=== PATIENT | female | born 1955 | race Caucasian/White ===

== ENCOUNTER 2016-12-15 06:29 | Inpatient (IN) | payer BC, MEDICARE ==
[~2016-12-15] VITALS: Ht 172.7 cm; Wt 123.8 kg
[~2016-12-15 06:29] MED LIST: ASCO-96 PO; ATOR40TA78 PO; CALCIUM + VIT D PO; CEPH-367 PO; CRANBERRY PO; CYAN10005 PO; CYCL-259 PO; FOLI0.8T2 PO; FURO40TA6 PO; GINK60TA4 PO; GLUC-121 PO; HYDR-3241 PO; HYDR2TAB13 PO; INSU100C SQ-INSULIN; INSU100V8 SQ; IRON PO; KRIL1CAP5 PO; Laxative; MAGNESIUM W/ ZINC PO; MELO-190 PO; METH750T87 PO; MILK OF MAG PO; PRAVASTATIN PO; PREG200C PO; ROPI5TAB PO; SELE200T2 PO; SLEEP AID PO; TRAM50TA2 PO; VITAMIN E PO; [UNRECOGNIZED DRUG - OTHER] PO; [UNRECOGNIZED DRUG - OTHER] PO
[2016-12-15] MEDS ORDERED: FENTANYL PF 250 MCG/5ML ONE ×2 (06:36→11:15)
[2016-12-15] MEDS ORDERED: HYDROmorphone 1 MG/ML, 1ML ONE ×2 (06:36→11:15)
[2016-12-15] MEDS ORDERED: KETAMINE 10 MG/ML, 20ML ONE (06:36)
[2016-12-15] MEDS ORDERED: MIDAZOLAM 1 MG/ML, 2ML ONE (06:36)
[2016-12-15] MEDS ORDERED: LACTATED RINGERS 1,000 ML IV SCH (07:53)
[2016-12-15 08:14] VITALS: BP 133/89
[2016-12-15] MEDS ORDERED: THROMBIN 5,000 UNIT VIAL TP ONE (08:39)
[2016-12-15] MEDS ORDERED: LIDOCAINE 0.5%-EPI 1:200K, 50ML ONE (08:39)
[2016-12-15] MEDS ORDERED: VANCOMYCIN 1,000 MG ONE (08:39)
[2016-12-15] MEDS ORDERED: BUPIVACAINE/PF-EPI 0.25% 1:200K ONE (08:39)
[2016-12-15] MEDS ORDERED: VANCOMYCIN 500 MG ONE (08:39)
[2016-12-15] MEDS ORDERED: ONDANSETRON 2MG/ML, 2ML ONE (08:53)
[2016-12-15] MEDS ORDERED: DEXAMETHASONE 4 MG/ML, 5ML ONE (08:53)
[2016-12-15] MEDS ORDERED: CEFAZOLIN 1,000 MG ONE (08:53)
[2016-12-15] MEDS ORDERED: LABETALOL 20 MG/4 ML ONE (08:53)
[2016-12-15] MEDS ORDERED: PROPOFOL 10 MG/ML, 50ML ONE (08:53)
[2016-12-15] MEDS ORDERED: PROPOFOL 10 MG/ML, 20ML ONE (08:53)
[2016-12-15] MEDS ORDERED: PHENYLEPHRINE 10 MG/ML ONE (08:53)
[2016-12-15] MEDS ORDERED: SUCCINYLCHOLINE 20 MG/ML, 10ML ONE (08:53)
[2016-12-15] MEDS ORDERED: METOCLOPRAMIDE 5 MG/ML, 2ML IV PRN (11:00)
[2016-12-15] MEDS ORDERED: OXYcodone 5 MG/5 ML ORAL.SOL UDC PO PRN (11:00)
[2016-12-15] MEDS ORDERED: LABETALOL 5MG/ML, 20ML IV PRN (11:00)
[2016-12-15] MEDS ORDERED: ONDANSETRON 2MG/ML, 2ML IVPush PRN (11:00)
[2016-12-15] MEDS ORDERED: ACETAMINOPHEN 325 MG TABLET PO PRN (11:00)
[2016-12-15] MEDS ORDERED: hydrALAzine 20 MG/ML, 1ML IV PRN (11:00)
[2016-12-15] MEDS ORDERED: PROMETHAZINE 25 MG/ML, 1ML IV PRN (11:00)
[2016-12-15] MEDS ORDERED: ALBUTEROL/IPRATROPIUM 2.5MG/0.5MG, 3 ML NPPB PRN (11:00)
[2016-12-15] MEDS ORDERED: MEPERIDINE/PF 25MG/0.5ML IVPush PRN (11:00)
[2016-12-15] MEDS ORDERED: MIDAZOLAM 1 MG/ML, 2ML IV PRN (11:00)
[2016-12-15] MEDS ORDERED: ACETAMINOPHEN 325 MG TABLET ONE (12:29)
[2016-12-15] MEDS ORDERED: OXYcodone 5 MG/5 ML ORAL.SOL UDC ONE (12:29)
[2016-12-15] MEDS ORDERED: FENTANYL PF 100 MCG/2ML ONE (12:29)
[2016-12-15] MEDS: FENTANYL PF 100 MCG/2ML IV PRN ×2 (12:30→12:35)
[2016-12-15] MEDS ORDERED: HYDROmorphone 2 MG/ML, 1ML ONE (12:43)
[2016-12-15] MEDS: HYDROmorphone 1 MG/ML, 1ML IV PRN ×2 (12:45→13:00)
[2016-12-15] MEDS ORDERED: ALBUTEROL/IPRATROPIUM 2.5MG/0.5MG, 3 ML ONE (13:05)
[2016-12-15] MEDS ORDERED: METHOCARBAMOL 1,000 MG in DEXTROSE 5% 100 ML IV ONE (14:30)
[2016-12-15] MEDS ORDERED: METHOCARBAMOL 1000MG/10 ML IVPB ONE (14:30)
[2016-12-15] MEDS ORDERED: MAGNESIUM HYDROXIDE 8%, 30ML UDC PO PRN (15:00)
[2016-12-15] MEDS ORDERED: BISACODYL 10 MG SUPP PR PRN (15:00)
[2016-12-15] MEDS ORDERED: ONDANSETRON 2MG/ML, 2ML IV PRN (15:00)
[2016-12-15] MEDS ORDERED: HYDROcodone/APAP 5/325 TABLET PO PRN (15:00)
[2016-12-15] MEDS ORDERED: PROMETHAZINE 25 MG/ML, 1ML IM PRN (15:00)
[2016-12-15] MEDS: DIAZEPAM 5 MG TABLET PO PRN (15:22)
[2016-12-15] MEDS ORDERED: INSULIN REGULAR 100 UNITS/ML, 3ML VIAL SQ-INSULIN SCH (16:00)
[2016-12-15] MEDS: METHOCARBAMOL 1,000 MG in DEXTROSE 5% 100 ML IV SCH ×2 (16:56→23:42)
[2016-12-15] MEDS: NS + 20MEQ KCL 1,000 ML IV SCH (17:05)
[2016-12-15] MEDS: CEFAZOLIN PMX 1GM/50ML 50 ML IVPB SCH (17:38)
[2016-12-15] MEDS ORDERED: OMEP20CA14 PO (17:51)
[2016-12-15] MEDS ORDERED: MONT10TA9 PO (17:51)
[2016-12-15] MEDS ORDERED: BECL8.7A5 INH (17:51)
[2016-12-15] MEDS ORDERED: LISI-424 PO (17:51)
[2016-12-15 19:03] VITALS: BP 117/74
[2016-12-15] MEDS ORDERED: LISINOPRIL 5 MG TABLET PO SCH (21:00)
[2016-12-15 23:16] VITALS: BP 107/71
[2016-12-15] MEDS: OMEPRAZOLE 20 MG CAPSULE.DR PO SCH (23:41)
[2016-12-15] MEDS: MONTELUKAST 10 MG TABLET PO SCH (23:42)
[2016-12-16] MEDS: CEFAZOLIN PMX 1GM/50ML 50 ML IVPB SCH ×3 (02:35→17:32)
[2016-12-16] MEDS: NS + 20MEQ KCL 1,000 ML IV SCH ×3 (02:35→20:48)
[2016-12-16] MEDS: DIAZEPAM 5 MG TABLET PO PRN (02:42)
[2016-12-16 03:55] VITALS: BP 99/62
[2016-12-16 06:05] LABS: HEMOGLOBIN 12.3 g/dL (11.7-16.4)
[2016-12-16 06:26] LABS: BLOOD UREA NITROGEN 14 mg/dL (7-18)
[2016-12-16 07:52] VITALS: BP 100/52
[2016-12-16] MEDS ORDERED: FUROSEMIDE 40 MG TABLET PO SCH (09:00)
[2016-12-16] MEDS: OMEPRAZOLE 20 MG CAPSULE.DR PO SCH ×2 (09:09→22:05)
[2016-12-16] MEDS: SENNA/DOCUSATE TABLET PO SCH (09:10)
[2016-12-16] MEDS: METHOCARBAMOL 750 MG TABLET PO SCH ×2 (11:06→17:38)
[2016-12-16] MEDS: HYDROcodone/APAP 10/325 MG TABLET PO PRN ×3 (13:31→22:08)
[2016-12-16 14:21] VITALS: BP 104/67
[2016-12-16] MEDS: morphine SULFATE 10 MG/ML, 1ML IV PRN ×2 (15:18→19:37)
[2016-12-16 18:53] VITALS: BP 114/70
[2016-12-16] MEDS: MONTELUKAST 10 MG TABLET PO SCH (22:05)
[2016-12-16] MEDS: LISINOPRIL 5 MG TABLET PO SCH (22:05)
[2016-12-17] MEDS: morphine SULFATE 10 MG/ML, 1ML IV PRN ×2 (01:10→04:29)
[2016-12-17] MEDS: CEFAZOLIN PMX 1GM/50ML 50 ML IVPB SCH ×3 (01:14→17:28)
[2016-12-17 01:17] VITALS: BP 121/73
[2016-12-17] MEDS: METHOCARBAMOL 750 MG TABLET PO SCH ×3 (02:17→17:32)
[2016-12-17] MEDS: HYDROcodone/APAP 10/325 MG TABLET PO PRN ×4 (02:17→21:53)
[2016-12-17 05:18] LABS: HEMOGLOBIN 13.7 g/dL (11.7-16.4)
[2016-12-17 05:23] LABS: BLOOD UREA NITROGEN 17 mg/dL (7-18)
[2016-12-17 06:39] VITALS: BP 105/68
[2016-12-17] MEDS: MAGNESIUM HYDROXIDE 8%, 30ML UDC PO SCH (08:55)
[2016-12-17] MEDS: NS + 20MEQ KCL 1,000 ML IV SCH ×2 (08:55→14:30)
[2016-12-17] MEDS: FUROSEMIDE 40 MG TABLET PO SCH (08:56)
[2016-12-17] MEDS: SENNA/DOCUSATE TABLET PO SCH (08:56)
[2016-12-17] MEDS: OMEPRAZOLE 20 MG CAPSULE.DR PO SCH ×2 (08:56→21:27)
[2016-12-17 14:00] VITALS: BP 128/84
[2016-12-17] MEDS ORDERED: DEXTROSE 50%, 50ML SYRINGE IVPush PRN (14:00)
[2016-12-17] MEDS: FENTANYL REMOVE PATCH NOTE XX SCH (14:30)
[2016-12-17] MEDS: FENTANYL 12 MCG PATCH TD SCH (17:00)
[2016-12-17 18:51] VITALS: BP 122/80
[2016-12-17] MEDS: MONTELUKAST 10 MG TABLET PO SCH (21:27)
[2016-12-17] MEDS: LISINOPRIL 5 MG TABLET PO SCH (21:27)
[2016-12-18] MEDS: CEFAZOLIN PMX 1GM/50ML 50 ML IVPB SCH ×2 (01:22→10:20)
[2016-12-18] MEDS: METHOCARBAMOL 750 MG TABLET PO SCH ×3 (01:22→17:45)
[2016-12-18 02:25] VITALS: BP 103/69
[2016-12-18 07:30] VITALS: BP 115/71
[2016-12-18] MEDS: SENNA/DOCUSATE TABLET PO SCH (10:21)
[2016-12-18] MEDS: MAGNESIUM HYDROXIDE 8%, 30ML UDC PO SCH (10:21)
[2016-12-18] MEDS: FUROSEMIDE 40 MG TABLET PO SCH (10:21)
[2016-12-18] MEDS: OMEPRAZOLE 20 MG CAPSULE.DR PO SCH ×2 (10:21→21:19)
[2016-12-18] MEDS: HYDROcodone/APAP 10/325 MG TABLET PO PRN ×3 (10:24→17:48)
[2016-12-18] MEDS: NS + 20MEQ KCL 1,000 ML IV SCH (10:30)
[2016-12-18 12:55] VITALS: BP 144/83
[2016-12-18] MEDS: PREGABALIN 100 MG CAPSULE PO SCH ×3 (13:25→21:19)
[2016-12-18 20:19] VITALS: BP 140/86
[2016-12-18] MEDS: MONTELUKAST 10 MG TABLET PO SCH (21:19)
[2016-12-18] MEDS: LISINOPRIL 5 MG TABLET PO SCH (21:19)
[2016-12-19] MEDS: METHOCARBAMOL 750 MG TABLET PO SCH ×3 (02:09→17:19)
[2016-12-19 02:22] VITALS: BP 116/72
[2016-12-19 06:46] VITALS: BP 132/71
[2016-12-19] MEDS: NS + 20MEQ KCL 1,000 ML IV SCH (07:52)
[2016-12-19] MEDS: PREGABALIN 200 MG CAPSULE PO SCH ×3 (08:16→21:35)
[2016-12-19] MEDS: FUROSEMIDE 40 MG TABLET PO SCH (08:16)
[2016-12-19] MEDS: MAGNESIUM HYDROXIDE 8%, 30ML UDC PO SCH (08:17)
[2016-12-19] MEDS: SENNA/DOCUSATE TABLET PO SCH (08:18)
[2016-12-19] MEDS: HYDROcodone/APAP 10/325 MG TABLET PO PRN ×5 (08:18→22:04)
[2016-12-19] MEDS: OMEPRAZOLE 20 MG CAPSULE.DR PO SCH ×2 (08:18→21:35)
[2016-12-19 12:49] VITALS: BP 104/69
[2016-12-19 20:01] VITALS: BP 104/53
[2016-12-19] MEDS: LISINOPRIL 5 MG TABLET PO SCH (21:35)
[2016-12-19] MEDS: MONTELUKAST 10 MG TABLET PO SCH (21:35)
[2016-12-20] MEDS: NS + 20MEQ KCL 1,000 ML IV SCH ×2 (02:30→22:06)
[2016-12-20] MEDS: HYDROcodone/APAP 10/325 MG TABLET PO PRN ×5 (02:35→22:20)
[2016-12-20] MEDS: METHOCARBAMOL 750 MG TABLET PO SCH ×3 (02:35→18:27)
[2016-12-20 02:37] VITALS: BP 92/62
[2016-12-20 07:30] VITALS: BP 102/50
[2016-12-20] MEDS: PREGABALIN 200 MG CAPSULE PO SCH ×3 (09:50→22:19)
[2016-12-20] MEDS: MAGNESIUM HYDROXIDE 8%, 30ML UDC PO SCH (09:51)
[2016-12-20] MEDS: FUROSEMIDE 40 MG TABLET PO SCH (09:51)
[2016-12-20] MEDS: SENNA/DOCUSATE TABLET PO SCH (09:51)
[2016-12-20] MEDS: OMEPRAZOLE 20 MG CAPSULE.DR PO SCH ×2 (09:52→22:19)
[2016-12-20 15:31] VITALS: BP 104/68
[2016-12-20] MEDS: FENTANYL 12 MCG PATCH TD SCH (17:31)
[2016-12-20] MEDS: FENTANYL REMOVE PATCH NOTE XX SCH (17:32)
[2016-12-20 20:39] VITALS: BP 104/62
[2016-12-20] MEDS: LISINOPRIL 5 MG TABLET PO SCH (22:19)
[2016-12-20] MEDS: MONTELUKAST 10 MG TABLET PO SCH (22:19)
[2016-12-21] MEDS: HYDROcodone/APAP 10/325 MG TABLET PO PRN ×5 (02:23→20:26)
[2016-12-21] MEDS: METHOCARBAMOL 750 MG TABLET PO SCH ×3 (02:24→18:18)
[2016-12-21 06:45] VITALS: BP 120/80
[2016-12-21] MEDS: OMEPRAZOLE 20 MG CAPSULE.DR PO SCH ×2 (08:06→20:25)
[2016-12-21] MEDS: SENNA/DOCUSATE TABLET PO SCH (08:06)
[2016-12-21] MEDS: FUROSEMIDE 40 MG TABLET PO SCH (08:06)
[2016-12-21] MEDS: PREGABALIN 200 MG CAPSULE PO SCH ×3 (08:06→20:25)
[2016-12-21] MEDS: MAGNESIUM HYDROXIDE 8%, 30ML UDC PO SCH (08:07)
[2016-12-21 12:30] VITALS: BP 123/82
[2016-12-21] MEDS: NS + 20MEQ KCL 1,000 ML IV SCH (18:30)
[2016-12-21 18:53] VITALS: BP 117/75
[2016-12-21] MEDS: MONTELUKAST 10 MG TABLET PO SCH (20:25)
[2016-12-21] MEDS: LISINOPRIL 5 MG TABLET PO SCH (20:25)
[2016-12-22] MEDS: HYDROcodone/APAP 10/325 MG TABLET PO PRN ×4 (00:12→15:15)
[2016-12-22] MEDS: METHOCARBAMOL 750 MG TABLET PO SCH ×2 (02:22→10:49)
[2016-12-22 02:25] VITALS: BP 122/69
[2016-12-22 06:36] VITALS: BP 109/71
[2016-12-22] MEDS: FUROSEMIDE 40 MG TABLET PO SCH (08:45)
[2016-12-22] MEDS: PREGABALIN 200 MG CAPSULE PO SCH (08:46)
[2016-12-22] MEDS: MAGNESIUM HYDROXIDE 8%, 30ML UDC PO SCH (08:46)
[2016-12-22] MEDS: SENNA/DOCUSATE TABLET PO SCH (08:47)
[2016-12-22] MEDS: OMEPRAZOLE 20 MG CAPSULE.DR PO SCH (08:47)
[2016-12-22] MEDS: NS + 20MEQ KCL 1,000 ML IV SCH (10:50)
[2016-12-22 12:50] VITALS: BP 114/72
[2016-12-22] MEDS ORDERED: POTASSIUM CHLORIDE 20 MEQ TAB.ER.PRT PO ONE (13:30)
[2016-12-22] MEDS ORDERED: FUROSEMIDE 20 MG TABLET PO ONE (13:30)
[2016-12-22] MEDS ORDERED: GADOBUTROL 10 MMOL/10 ML PFS ONE (14:57)
[2016-12-22] MEDS ORDERED: SENN1TAB7 PO (15:49)
[2016-12-22] MEDS ORDERED: BISA10SU2 PR (15:50)
[2016-12-22] MEDS ORDERED: HYDR-3144 PO (15:51)
[2016-12-22] MEDS ORDERED: MAGN30OR PO (15:52)
[2016-12-22] MEDS ORDERED: ONDA-39 PO (15:53)
[2016-12-22] MEDS ORDERED: FENT-58 TD (15:54)
[2016-12-22] MEDS ORDERED: PREGABALIN 100 MG CAPSULE PO SCH (16:00)
== END 2016-12-22 19:00 | DRG 460 ==
LOC: ORIP 06:29 → 4NOR 14:34
PROVIDERS: ADMIT Orthopaedic Surgery Orthopaedic Surgery of the Spine; ATTEND Orthopaedic Surgery Orthopaedic Surgery of the Spine
PROC: 0SB20ZZ Excision of Lumbar Vertebral Disc, Open Approach (ICD-10-PCS; 2016-12-15)
PROC: 4A11X4G Monitoring of Peripheral Nervous Electrical Activity, Intraoperative, External Approach (ICD-10-PCS; 2016-12-15)
PROC: 0SG00A0 Fusion of Lumbar Vertebral Joint with Interbody Fusion Device, Anterior Approach, Anterior Column, Open Approach (ICD-10-PCS; principal; 2016-12-15 08:30)
DX: M48.06 Spinal stenosis, lumbar region (principal); M43.16 Spondylolisthesis, lumbar region; I10 Essential (primary) hypertension; E11.9 Type 2 diabetes mellitus without complications; Z96.41 Presence of insulin pump (external) (internal); E78.00 Pure hypercholesterolemia, unspecified; M54.16 Radiculopathy, lumbar region; G25.81 Restless legs syndrome; J45.909 Unspecified asthma, uncomplicated; K21.9 Gastro-esophageal reflux disease without esophagitis; R53.1 Weakness; Z79.4 Long term (current) use of insulin; Z98.1 Arthrodesis status; Z79.82 Long term (current) use of aspirin; Z91.81 History of falling; Z79.899 Other long term (current) drug therapy
CPT/HCPCS: 36415; 72100; 72158; 80048; 82962; 85025; A9585; C1713; J0690; J1100; J1170; J2250; J2270; J2405; J2704; J3010; J3370; J3480; C1760; C1762; J0330; J2370; J2800; J7120